=== PATIENT | female | born 1980 | race Caucasian/White ===

== ENCOUNTER 2023-10-18 07:23 | Emergency (ER) | payer BC ==
[2023-10-18 07:53] VITALS: BP 94/45; PULSE 54; RESP 16; TEMP 98.7; BMI 27.4
== END 2023-10-18 08:02 | disposition home or self-care (01) ==
LOC: FER 07:23
DX: R55 Syncope and collapse (principal); R11.0 Nausea
CPT/HCPCS: 93005; 99283-25

== ENCOUNTER 2024-05-20 09:20 | Emergency (ER) | payer BC ==
[2024-05-20 09:47] VITALS: BP 99/50; PULSE 61; RESP 20; TEMP 97.4; BMI 21.6
== END 2024-05-20 10:36 | disposition home or self-care (01) ==
LOC: FER 09:20
DX: S92.514A Nondisplaced fracture of proximal phalanx of right lesser toe(s), initial encounter for closed fracture (principal); W22.8XXA Striking against or struck by other objects, initial encounter
CPT/HCPCS: 73630-TC-RT-FY; 73660-TC-FY; 99283-25

== ENCOUNTER 2024-11-01 09:09 | Emergency (ER) | payer BC ==
[2024-11-01] MEDS ORDERED: IBUPROFEN 600 MG TABLET (FP) PO ONE (09:21)
[2024-11-01] MEDS: IBUPROFEN 600 MG TABLET (FP) PO ONE (09:22)
[2024-11-01 09:33] VITALS: BP 93/31; PULSE 55; RESP 18; TEMP 97.3; BMI 21.6
== END 2024-11-01 10:15 | disposition home or self-care (01) ==
LOC: FER 09:09
DX: S92.514A Nondisplaced fracture of proximal phalanx of right lesser toe(s), initial encounter for closed fracture (principal); S92.524A Nondisplaced fracture of middle phalanx of right lesser toe(s), initial encounter for closed fracture; S92.534A Nondisplaced fracture of distal phalanx of right lesser toe(s), initial encounter for closed fracture; X58.XXXA Exposure to other specified factors, initial encounter
CPT/HCPCS: 73630-TC-RT-FY; 73660-TC-FY; 99283-25